=== PATIENT | male | born 1950 | race Caucasian/White ===

== ENCOUNTER 2020-07-07 08:06 | Outpatient (REF) | payer MEDICARE, SELFPAY ==
--- NOTE | 2020-07-07 | PFT_ITS ---
INDICATION: Shortness of breath. SPIROMETRY: The FEV1 to FVC of 61% with an FEV1 of 2.09 L, which is 62% predicted, and an FVC of 3.42 L, which is 76% predicted. Post bronchodilators, there was a significant improvement of the FEV1 by 15%. Maximum voluntary ventilation 61% predicted. LUNG VOLUMES: Total lung capacity 99% predicted with a decrease in the expiratory reserve volume secondary to an elevated BMI. DIFFUSION CAPACITY: DLCO 50% predicted. COMPARISON: None. INTERPRETATION: There is an obstructive ventilatory defect consistent with moderate COPD. The patient did have a significant response to bronchodilators noted. In addition to that, there is significant small airways disease. The patient has a moderate decrease in maximum voluntary ventilation secondary to deconditioning and also worsening dynamic inspiratory capacity. Lung volumes with significant air trapping due to the COPD and a decrease in the expiratory reserve volume secondary to an elevated BMI. There is a moderate diffusion impairment secondary to likely emphysema and other parenchymal lung conditions and/or pulmonary vascular conditions should also be considered. Clinical correlation warranted. MD TRAE Marsh/FREDERIC / [id number]
== END 2020-07-07 08:07 | disposition home or self-care (01) ==
LOC: HO.RESP 08:06
PROVIDERS: PCP Internal Medicine; Visit Provider Internal Medicine Cardiovascular Disease
DX: R06.02 Shortness of breath (principal)
CPT/HCPCS: 94060; 94727; 94729

== ENCOUNTER 2024-04-10 14:12 | Outpatient (RCR) | payer MEDICARE, SELFPAY | END 2024-04-18 14:25 | disposition home or self-care (01) | LOC: HO.PT 14:12 | PROVIDERS: PCP Internal Medicine; Visit Provider Physician Assistant Surgical | DX: M76.11 Psoas tendinitis, right hip (principal); Z98.890 Other specified postprocedural states | CPT/HCPCS: 97110; 97162; 97530 ==

== ENCOUNTER 2024-09-20 14:04 | Outpatient (RCR) | payer MEDICARE, SELFPAY ==
[2024-08-09 10:01] VITALS: BP 129/72; PULSE 72; O2SAT 96
== END 2024-09-20 15:13 | disposition home or self-care (01) ==
LOC: HO.PT 14:04
PROVIDERS: PCP Internal Medicine; Visit Provider Internal Medicine
DX: M62.81 Muscle weakness (generalized) (principal); R26.9 Unspecified abnormalities of gait and mobility
CPT/HCPCS: 97110; 97162; 97530